=== PATIENT | female | born 1975 | race Caucasian/White ===

== ENCOUNTER → 2018-04-23 08:51 | Outpatient (POV) | payer BC, SELFPAY | PROVIDERS: Visit Provider Dermatology | DX: Z00.00 Encounter for general adult medical examination without abnormal findings (principal) ==

== ENCOUNTER 2018-06-11 16:30 | Outpatient (RCR) | payer BC, SELFPAY ==
--- NOTE | 2018-02-18 09:27 | HMH.PTOPWND ---
Rehab Outpt Wound Evaluation Rehab OP Wound Evaluation Start: 02/18/18 09:12 Freq: Status: Active Protocol: Document 02/18/18 09:20 KHALIF (Rec: 02/18/18 09:27 PHOYURI [id number]) Electronically Signed By Keanu Mcgraw, PT 02/18/18 09:20 Subjective/History History History Pt is 42 yowf who presents ~ 2 mos S/P basal cell carcinoma removal from left side of her nose with loaclized edema. She reports only mild discomfort with tingling intermittently around her nose and into the forehead. She reports no vision or swallowing difficulty. She also reports no significant PMH. Lymphedema Eval Classification of Lymphedema Secondary Lymphedema Yes: post-surgical Stage of Lymphedema Lymphedema stages Stage 0 (subjective c/o heaviness and aching) Pain Scale Pain Scale (0-10) 2 Affected Extremities Areas Affected by Lymphedema/Edema Head/Neck Manual Lymphatic Drainage Treatment Area MLD Treatment Area Head/Neck Wound Problems/Impairments Impairments Problems/Impairmments Palpation Tenderness Increased Edema Lymphedema Present Impaired Self Care/Self Management Prognosis Rehab Potential Good Clinical Impression Consistent with Diagnosis Yes Short Term Goals Number of Weeks 4 Decreased Palpation Tenderness Yes: to min Decrease Edema Yes: by 50% Decrease Subjective C/O Pain Yes: 1/10 Patient to Understand Lymphedema Yes Treatment and Exercises Seat Coverer Goals Number of Weeks 8 Decreased Palpation Tenderness Yes: to none Decrease Edema Yes: by 100% Decrease Subjective C/O Pain Yes: 0/10 Patient to Adhere Lymphedema Precautions Yes Outpatient Therapy Plan of Care Treatment Plan May Include Therapeutic Exercise Including Home Yes Exercise Program Manual Therapy Techniques Yes Neuromuscular Re-education Yes Thermal Modalities Yes Orthotics/Bracing/Splinting Yes Massage Yes Manual Lymphatic Drainage Yes Eval/Re-Eval Yes Frequency Times per week 2 Duration Number of Weeks 8 Addendums This patient is a candidate for social Yes or vocational rehab? Patient/Guardian verbally acknowledges Yes understanding of treatment program and
--- NOTE | 2018-04-12 11:35 | HMH.RHREAS ---
Rehab Reassessment Rehab OP Re-assessment Start: 04/12/18 11:31 Freq: Status: Active Protocol: Document 04/12/18 11:31 KHALIF (Rec: 04/12/18 11:35 KHALIF [id number]) Electronically Signed By Keanu Mcgraw, PT 04/12/18 11:31 Rehab Re-assessment Subjective Subjective Pt reports much less pain overall and states, I can breathe through my nose much better now. Objective Objective Notes Less tenderness to palpation directly on the incision. Less edema palpable under the left eye. Assessment Progress Assessment Progressing as Expected Assessment Notes Pt with considerably decreased edema in the face. Patient goals met ST,2,3,4 Goals Not Met LT,2,3,4 Revised Goals none Plan Plan Continue per initial POC. Frequency of Therapy 2 x/wk Duration of therapy 8 wks Time and Billing Re-Eval Time 15 Re-Eval Billing Units 1 PHYSICIAN CERTIFICATION: I certify the specified therapy services for Maria D Espinal are required, authorized, and reviewed every 30 days.
== END 2018-06-11 16:35 | disposition home or self-care (01) ==
LOC: PT 16:30
PROVIDERS: Family Provider Family Medicine; Visit Provider Family Medicine
DX: I89.0 Lymphedema, not elsewhere classified (principal)
CPT/HCPCS: 97110; 97140; 97162; 97164; 97760

== ENCOUNTER → 2019-11-20 16:48 | Outpatient (CLI) | payer BC, SELFPAY ==
[2019-11-20 19:14] LABS: Coronavirus 19 IgG Antibody Negative (Negative); Coronavirus 19 IgM Antibody Negative (Negative)
== END ==
PROVIDERS: PCP Family Medicine; Visit Provider Family Medicine
DX: Z01.84 Encounter for antibody response examination (principal)
CPT/HCPCS: 36415; 86328

== ENCOUNTER → 2020-01-13 08:04 | Outpatient (POV) | payer BC, SELFPAY | PROVIDERS: Visit Provider Dermatology | DX: Z00.00 Encounter for general adult medical examination without abnormal findings (principal) ==

== ENCOUNTER → 2021-03-22 11:12 | Outpatient (POV) | payer BC, SELFPAY | PROVIDERS: Visit Provider Dermatology | DX: Z00.00 Encounter for general adult medical examination without abnormal findings (principal) ==

== ENCOUNTER → 2021-06-30 08:04 | Outpatient (CLI) | payer BC, SELFPAY ==
[2021-07-01 06:31] LABS: Covid-19 Nasal PCR Sendout Lex POSITIVE
== END ==
PROVIDERS: Visit Provider Nurse Practitioner
DX: U07.1 COVID-19 (principal)
CPT/HCPCS: C9803; U0004; U0005

== ENCOUNTER → 2021-10-26 15:56 | Outpatient (CLI) | payer BC, SELFPAY ==
--- NOTE | 2021-10-26 16:01 | XR_ITS ---
FINAL REPORT CLINICAL HISTORY: RIGHT SHOULDER PAIN. UNSPECIFIED CHRONICITY FINDINGS: RIGHT SHOULDER 3 views of the right shoulder were obtained. There is no acute fracture or dislocation. There are mild degenerative changes of the acromioclavicular joint. There is no soft tissue abnormality. IMPRESSION: Mild degenerative change of the acromioclavicular joint with no acute bony abnormality. Reviewed, Interpreted and Dictated by Chino Lam III, MD Transcribed by Marisol Godwin Authenticated and . [facility]
== END ==
PROVIDERS: PCP Family Medicine; Visit Provider Family Medicine
DX: M25.511 Pain in right shoulder (principal)
CPT/HCPCS: 73030

== ENCOUNTER → 2022-04-04 08:06 | Outpatient (POV) | payer BC, SELFPAY | PROVIDERS: Visit Provider Dermatology | DX: Z00.00 Encounter for general adult medical examination without abnormal findings (principal) ==

== ENCOUNTER 2023-06-26 09:07 | Outpatient (POV) | payer BC, SELFPAY | END 2023-06-26 23:59 | disposition home or self-care (01) | LOC: SC 09:08 | PROVIDERS: PCP Family Medicine; Visit Provider Dermatology | DX: Z00.00 Encounter for general adult medical examination without abnormal findings (principal) ==